=== PATIENT | male | born 1945 | race Caucasian/White ===

== ENCOUNTER → 2018-10-22 09:51 | Outpatient (CLI) | payer MEDICARE, SELFPAY ==
--- NOTE | 2018-10-22 10:04 | PCM.CR.HP2 ---
CR - History & Physical - General Arrival date:: 10/22/18 Arrival time:: 10:04 Date of Referral:: 10/12/18 Date of CR Evaluation:: 10/22/18 Referring Physician: Dr. Carlin Jay @ [facility] Primary Diagnosis: CABG - History of Present Cardiac Event Onset Date: Enter Onset Date of cardiac illnesses in Comment field below Coronary Artery Bypass Graft:: Yes - 08/25/2018 Type of Symptoms:: heart cath diagnostic, found blockages that couldn't be fixed with stents. - Medications Home Medications: Ambulatory Orders Medication Instructions Recorded Cephalexin [Keflex] 500 mg PO Q6 #40 capsule 07/18/14 Smz/Tmp Ds [Bactrim Ds] 1 tablet PO BID #20 tablet 07/18/14 Amiodarone HCl [Pacerone] 100 mg PO 10/22/18 Apixaban [Eliquis] 5 mg PO 10/22/18 Apixaban [Eliquis] 5 mg PO BID 10/22/18 Clopidogrel Bisulfate [Clopidogrel] 75 mg PO 10/22/18 Furosemide [Lasix] 20 mg PO DAILY 10/22/18 Metoprolol Tartrate [Lopressor 12.5 mg PO BID 10/22/18 (Beta Earl)] Polyethylene Glycol 3350 [Miralax] 17 gm PO DAILY 10/22/18 Potassium Chloride [K-Dur] 20 meq PO BID 10/22/18 Sennosides [Senna] 8.6 mg PO 10/22/18 - Allergies Allergies/Adverse Reactions: Allergies acetaminophen [From Tylenol-Codeine] Adverse Reaction (Verified 07/18/14 07:27) Swelling codeine phosphate [From Tylenol-Codeine] Adverse Reaction (Verified 07/18/14 07:27) Swelling - Sleep Disorder Evaluation Hx of Sleep Apnea: No Do you snore loudly (louder than talking or can be heard through closed doors)?: Yes Do you often feel tired/ fatigued/ sleepy during daytime?: Yes Has anyone observed you stop breathing during sleep?: No History of Hypertension (for STOP score): Yes STOP Results: Positive Advanced Directives - Advanced Directives Power of Fixed Wing Aircraft Crew Chief: No Living Will: No Advance Directives Information Provided: Yes Advance Directives on File: No DNR Order?:: No - MOLST See MOLST form: No Past Medical History - Past Medical Illness Medical History: Past Medical History (Last Updated 10/22/18 @ 10:18 by Bobby Jones, WAIVER ANALYST, IT SYSTEMS ANALYST, BS) Acute peptic ulcer K27.3 Acute sciatica M54.30 Amaurosis fugax G45.3 Atrial paroxysmal tachycardia I47.1 CAD (coronary artery disease) I25.10 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 Claudication I73.9 Hyperlipidemia E78.5 Macroscopic hematuria R31.0 Malaise and fatigue R53.81, R53.83 PVD (peripheral vascular disease) with claudication I73.9 Thrombocytopenic disorder D69.6 Hypertension I10 - Past Surgical History Surgical History: appendectomy, herniorrhaphy Social History - Smoking History Smoking Status: Former smoker Years Smokin Packs Smoked per Day: 0.5 Hx Smoking Cessation Date: 2009 Hx Tobacco Use: Yes Hx Smoking Exposure: Yes - Alcohol Use Alcohol Usage: Yes - not hardly nothing; a few beers when camping - Substance Abuse Hx Substance Use: No - Occupation Occupation (List type of work in comments):: Retired - officially retired but work part-time at [employer] Hours worked per day:: 8 - 32 hours week - Hobbies, Recreation, Social Activities Hobbies: Other - camping, dancing, bowling Recreational Activities: I am able to engage in a few activities Social Environment - Status Marital Status: - Current Living Arrangements Living Environment:: Spouse - Children How many children do you have?: 8 Do any of your children live nearby?: Yes - 4 of them live in the area. - Safety Do you feel safe in your surroundings?: Yes - Assistance Do you need any assistance at home?: none Review of Systems - Review of Systems Hints: Right click = Denies (Slash). Left click = Reports ([place]) Review of Present Symptoms: Reports: Shortness of Breath with Exertion, Operative Discomfort - still experiencing some surgical discomfort at the site of incision., Dizziness/Lightheadedness, Fatigue, Heart Arrhythmia/Irregularities - atrial tachycardia(paroxysmal), Appetite - Normal, Appetite - Special Diet - low fat, low salt, Sleep - Normal. Denies: Shortness of Breath at Rest, Angina, Sexual Changes - Pain Is Patient Pain Free?: Yes Risk Factor Assessment - Chief Complaint Chief Complaint: Patient presents to cardiac rehab by Dr. Re Jay following recent CABG done at [facility] on 08/25/2018. Patient has been doing relatively well following his surgery. - Vital Signs Temperature: 98.7 F Respiratory Rate: 14 Pulse Ox: 97 Blood Pressure: 118/68 Nailbeds:: pink - Pulse Pulse Rate: 49 - h/o a-fib Pulse Rhythm: Irregular - Hypertension Blood Pressure Sitting - Left Arm: 118/68 - Stress Stress: Recent - being unable to wrok since surgery - Obesity Height: 6 ft Weight:: 212 lb Weight in Pounds: 212.0 lbs Weight Source: Estimated by Patient Body Mass Index (BMI): 28.7 Nutritional Referral for Obesity: No - Physical Inactivity Physical Inactivity: None - Risk Stratification Risk Guidelines: Lowest Risk: Risk Factor for Smoking, Risk Factor for Dyslipidemia, Risk Factor for Diabetes, Risk Factor for Hypertension, Risk Factor for Sedentary Lifestyle, Risk Factor for Depression, Moderate Risk: Risk Factor for Obesity - For Smoking Smoking Risk Guidelines: Smoking Low Risk: None or quit greater than 6 months ago. Smoking Moderate Risk: Smoker or quit 6 months or less ago. Smoking High Risk: Smoker - For Dyslipidemia Dyslipidemia Risk Guidelines: Low Risk: Moderate Risk: High Risk: 15-25% fat 25.1-29% fat >/= 30% fat. <7% sat fat 7-9% sat fat >9% sat fat. <150 mg chol 150-299 mg chol >/= 300 mg chol. LDL <100 LDL 100-129 LDL >/= 130. Chol/HDL ratio <5.0 Chol/HDL ratio 5.0-6.0 Chol/HDL ratio >6.0. Triglycerides <100 Triglycerides 100-149 Triglycerides >/= 150 - For Diabetes Mellitus Diabetes Risk Guidelines: Diabetes Low Risk: HgA1c <6.5% and/or FBG <120. Diabetes Moderate Risk: HgA1c 6.6-7.9% and/or FBG 120-180. Diabetes High Risk: HgA1c >/= 8% and/or FBG >180 - For Obesity/Overweight Obesity/Overweight Risk Guidelines: Obesity Low Risk: BMI <25.0. Obesity Moderate Risk: BMI 25-29.9. Obesity High Risk: BMI >/= 30.0 - For Hypertension Hypertension Risk Guidelines: Hypertension Low Risk: Systolic <120 and Diastolic <80. Hypertension Moderate Risk: Systolic 120-139 and Diastolic 80-89. Hypertension High Risk: Systolic >/= 140 and Diastolic >/= 90 - For Sedentary Lifestyle Sedentary Lifestyle Risk Guidelines: Sedentary Lifestyle Low Risk: >/= 1,500 kcal/week. Sedentary Lifestyle Moderate Risk: 700-1,499 kcal/week. Sedentary Lifestyle High Risk: < 700 kcal/week - For Depression Depression Risk Guidelines: Depression Low Risk: Not clinically depressed. Depression Moderate Risk: Mildly depressed. Depression High Risk: Clinically depressed Motivation - Motivation to Participate On a scale of 1 to 10, how prepared are you to commit to attending program?: 10 What do you see as barriers to successfully being able to complete the program?: not much on a treadmill What do you see as the benefits of succesfully completing the program? In other words, what do you hope to get out of participating in the program?: hope it makes me feel better Are there issues you are dealing with that will interfere with completing the program?: none Do you have a spouse or signficant other, family or friends who will help support you to complete the program?: yes.
--- NOTE | 2018-10-22 10:10 | CR.HP_ITS ---
CR - History & Physical - General Arrival date:: 10/22/18 Arrival time:: 10:04 Date of Referral:: 10/12/18 Date of CR Evaluation:: 10/22/18 Referring Physician: Dr. Carlin Jay @ [facility] Primary Diagnosis: CABG - History of Present Cardiac Event Onset Date: Enter Onset Date of cardiac illnesses in Comment field below Coronary Artery Bypass Graft:: Yes - 08/25/2018 Type of Symptoms:: heart cath diagnostic, found blockages that couldn't be fixed with stents. - Medications Home Medications: Ambulatory Orders Medication Instructions Recorded Cephalexin [Keflex] 500 mg PO Q6 #40 capsule 07/18/14 Smz/Tmp Ds [Bactrim Ds] 1 tablet PO BID #20 tablet 07/18/14 Amiodarone HCl [Pacerone] 100 mg PO 10/22/18 Apixaban [Eliquis] 5 mg PO 10/22/18 Apixaban [Eliquis] 5 mg PO BID 10/22/18 Clopidogrel Bisulfate [Clopidogrel] 75 mg PO 10/22/18 Furosemide [Lasix] 20 mg PO DAILY 10/22/18 Metoprolol Tartrate [Lopressor 12.5 mg PO BID 10/22/18 (Beta Earl)] Polyethylene Glycol 3350 [Miralax] 17 gm PO DAILY 10/22/18 Potassium Chloride [K-Dur] 20 meq PO BID 10/22/18 Sennosides [Senna] 8.6 mg PO 10/22/18 - Allergies Allergies/Adverse Reactions: Allergies acetaminophen [From Tylenol-Codeine] Adverse Reaction (Verified 07/18/14 07:27) Swelling codeine phosphate [From Tylenol-Codeine] Adverse Reaction (Verified 07/18/14 07:27) Swelling - Sleep Disorder Evaluation Hx of Sleep Apnea: No Do you snore loudly (louder than talking or can be heard through closed doors)?: Yes Do you often feel tired/ fatigued/ sleepy during daytime?: Yes Has anyone observed you stop breathing during sleep?: No History of Hypertension (for STOP score): Yes STOP Results: Positive Advanced Directives - Advanced Directives Power of Circuit Court Clerk: No Living Will: No Advance Directives Information Provided: Yes Advance Directives on File: No DNR Order?:: No - MOLST See MOLST form: No Past Medical History - Past Medical Illness Medical History: Past Medical History (Last Updated 10/22/18 @ 10:18 by Bobby Jones, DYNAMICS AX CONSULTANT, RODEO PERFORMER, BS) Acute peptic ulcer K27.3 Acute sciatica M54.30 Amaurosis fugax G45.3 Atrial paroxysmal tachycardia I47.1 CAD (coronary artery disease) I25.10 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 Claudication I73.9 Hyperlipidemia E78.5 Macroscopic hematuria R31.0 Malaise and fatigue R53.81, R53.83 PVD (peripheral vascular disease) with claudication I73.9 Thrombocytopenic disorder D69.6 Hypertension I10 - Past Surgical History Surgical History: appendectomy, herniorrhaphy Social History - Smoking History Smoking Status: Former smoker Years Smokin Packs Smoked per Day: 0.5 Hx Smoking Cessation Date: 2009 Hx Tobacco Use: Yes Hx Smoking Exposure: Yes - Alcohol Use Alcohol Usage: Yes - not hardly nothing; a few beers when camping - Substance Abuse Hx Substance Use: No - Occupation Occupation (List type of work in comments):: Retired - officially retired but work part-time at [employer] Hours worked per day:: 8 - 32 hours week - Hobbies, Recreation, Social Activities Hobbies: Other - camping, dancing, bowling Recreational Activities: I am able to engage in a few activities Social Environment - Status Marital Status: - Current Living Arrangements Living Environment:: Spouse - Children How many children do you have?: 8 Do any of your children live nearby?: Yes - 4 of them live in the area. - Safety Do you feel safe in your surroundings?: Yes - Assistance Do you need any assistance at home?: none Review of Systems - Review of Systems Hints: Right click = Denies (Slash). Left click = Reports ([place]) Review of Present Symptoms: Reports: Shortness of Breath with Exertion, Operative Discomfort - still experiencing some surgical discomfort at the site of incision., Dizziness/Lightheadedness, Fatigue, Heart Arrhythmia/Irregularities - atrial tachycardia(paroxysmal), Appetite - Normal, Appetite - Special Diet - low fat, low salt, Sleep - Normal. Denies: Shortness of Breath at Rest, Angina, Sexual Changes - Pain Is Patient Pain Free?: Yes Risk Factor Assessment - Chief Complaint Chief Complaint: Patient presents to cardiac rehab by Dr. Re Jay following recent CABG done at [facility] on 08/25/2018. Patient has been doing relatively well following his surgery. - Vital Signs Temperature: 98.7 F Respiratory Rate: 14 Pulse Ox: 97 Blood Pressure: 118/68 Nailbeds:: pink - Pulse Pulse Rate: 49 - h/o a-fib Pulse Rhythm: Irregular - Hypertension Blood Pressure Sitting - Left Arm: 118/68 - Stress Stress: Recent - being unable to wrok since surgery - Obesity Height: 6 ft Weight:: 212 lb Weight in Pounds: 212.0 lbs Weight Source: Estimated by Patient Body Mass Index (BMI): 28.7 Nutritional Referral for Obesity: No - Physical Inactivity Physical Inactivity: None - Risk Stratification Risk Guidelines: Lowest Risk: Risk Factor for Smoking, Risk Factor for Dyslipidemia, Risk Factor for Diabetes, Risk Factor for Hypertension, Risk Factor for Sedentary Lifestyle, Risk Factor for Depression, Moderate Risk: Risk Factor for Obesity - For Smoking Smoking Risk Guidelines: Smoking Low Risk: None or quit greater than 6 months ago. Smoking Moderate Risk: Smoker or quit 6 months or less ago. Smoking High Risk: Smoker - For Dyslipidemia Dyslipidemia Risk Guidelines: Low Risk: Moderate Risk: High Risk: 15-25% fat 25.1-29% fat >/= 30% fat. <7% sat fat 7-9% sat fat >9% sat fat. <150 mg chol 150-299 mg chol >/= 300 mg chol. LDL <100 LDL 100-129 LDL >/= 130. Chol/HDL ratio <5.0 Chol/HDL ratio 5.0-6.0 Chol/HDL ratio >6.0. Triglycerides <100 Triglycerides 100-149 Triglycerides >/= 150 - For Diabetes Mellitus Diabetes Risk Guidelines: Diabetes Low Risk: HgA1c <6.5% and/or FBG <120. Diabetes Moderate Risk: HgA1c 6.6-7.9% and/or FBG 120-180. Diabetes High Risk: HgA1c >/= 8% and/or FBG >180 - For Obesity/Overweight Obesity/Overweight Risk Guidelines: Obesity Low Risk: BMI <25.0. Obesity Moderate Risk: BMI 25-29.9. Obesity High Risk: BMI >/= 30.0 - For Hypertension Hypertension Risk Guidelines: Hypertension Low Risk: Systolic <120 and Diastolic <80. Hypertension Moderate Risk: Systolic 120-139 and Diastolic 80-89. Hypertension High Risk: Systolic >/= 140 and Diastolic >/= 90 - For Sedentary Lifestyle Sedentary Lifestyle Risk Guidelines: Sedentary Lifestyle Low Risk: >/= 1,500 kcal/week. Sedentary Lifestyle Moderate Risk: 700-1,499 kcal/week. Sedentary Lifestyle High Risk: < 700 kcal/week - For Depression Depression Risk Guidelines: Depression Low Risk: Not clinically depressed. Depression Moderate Risk: Mildly depressed. Depression High Risk: Clinically depressed Motivation - Motivation to Participate On a scale of 1 to 10, how prepared are you to commit to attending program?: 10 What do you see as barriers to successfully being able to complete the program?: not much on a treadmill What do you see as the benefits of succesfully completing the program? In other words, what do you hope to get out of participating in the program?: hope it makes me feel better Are there issues you are dealing with that will interfere with completing the program?: none Do you have a spouse or signficant other, family or friends who will help support you to complete the program?: yes.
[2018-10-22 10:28] VITALS: BP 118/68; PULSE 49; RESP 14; TEMP 37.1; O2SAT 97; BMI 28.7
--- NOTE | 2018-10-22 12:33 | CR.ITP_ITS ---
General Information - General Information Admitting Diagnosis: CABG - Education/Goals Barriers to Learning: Vision Impairment Individual Counseling: Initial Assessment: Nicotine/Smoking, High Blood Pressure, Overweight/Obesity Cardiac Rehabilitation Goals: 1. Maintain the individual as the primary focus of care. 2. To improve the patient's quality of life. 3. Identification of cardiac risk factors and provide cardiac risk factor management. 4. Enhance the psychosocial status of the patient. 5. Reconditioning enough to allow the patient to resume customary activities. 6. Control symptoms of cardiac disease Scale for measuring improvement of personal goals: Enter appropriate number in Comments. 2 = Unchanged. 3 = Slightly Better. 4 = Moderate Improvement. 5 = Met my Goal Personal Goals: Initial Assessment: Improve energy level, Participate in home exercise program, Get back to work, or to resume activities faster, Improve knowledge of cardiac disease, Improve muscle strength and endurance, Improve diet and eating habits (eat healthier), Control risk factors (learn risk factor modification) Exercise - Initial Assessment - Visit Date of Eval: 10/22/18 Session #:: 0 - Start 11/04/2018 - Stages of Change Stages of Change:: Action - Exercise Prescription Mode:: Treadmill, Airdyne, NuStep, Arm Ergometer Angina with exercise?: No - Hypertension Do any of the following apply?: Yes - Intervention Home Exercise/Activity Goal:: Sitting Time <3 hrs/day - Education Goals:: Warm-up, RPE SADAF Scale, S/S, Safe Exercise, Self-Monitoring - Exercise Program Goals Exercise Program Goals: Aerobic Activity >30 min Nutrition - Initial Assessment - Program Goals Nutrition Program Goals: LDL <70. Total Cholesterol <200. HDL >45. Triglycerides <150. HgbA1C <7%. BMI <25 - Visit Date of Assessment:: 10/22/18 - Stages of Change Stages of Change:: Action - Diabetes Diabetes:: No - Weight Management Height: 6 ft Weight:: 212 lb Body Fat %:: 28.8 - Intervention Referral to dietitian:: No Referral to Diabetic Clinic:: No Will attend diet classes:: Yes - Education Gave educational materials for:: Healthy eating Tobacco - Initial Assessment - Program Goals Tobacco Program Goals: Complete smoking cessation. Attend education classes. Improve Knowledge Test score - Stage of Change Stages of Change:: Action - Learning Barriers Learning Barriers: Ready to Learn - Family Support Do you have family support?: Yes - Tobacco Use Tobacco Use: Cigarettes How long ago did you quit using tobacco products?: Greater than or equal to 6 months ago Years Smokin Do you use smokeless tobacco?: No - Intervention Smoking Cessation Referral:: No Individual Education/Counseling:: No Education Schedule Given:: Yes - Education Gave educational material for:: Coronary artery disease, Risk factors, Se xuality, Medical compliance, Cardiac A&P, Angina signs & symptoms Psychosocial - Initial Assess - Target Goals Target Goals: Assess presence or absence of depression. Using a valid screening tool, maximizes coping skills. Positive support system - Stages of Change Stages of Change:: Action - Psychosocial Test Tool Used:: HANDS Depression Questionnaire - Intervention PS - Interventions: Yes Attend Stress Management Classes, No Referral to Mental Health, No Referral to [facility] Case Management, No Referral to Physician, No Uses Stress Management Skills - Education Gave educational materials for:: Coping techniques, Signs & symptoms of depression, Stress management, Relaxation techniques - Patient/Program Goal Preventative Medication(s):: Aspirin, Clopidogrel, Beta yeni, Statin/lipid - Assistive Devices Assistive Devices:: None Fall Risk Assessed:: Yes Patient Health Questionnaire Initial Assessment 1. Little interest or pleasure in doing things: More than half the days 2. Feeling down, depressed, or hopeless: Not at all 3. Trouble falling or staying asleep, or sleeping too much: Not at all 4. Feeling tired or having little energy: More than half the days 5. Poor appetite or overeating: Not at all 6. Feeling bad about yourself -- or that you are a failure or have let yourself or your family down: More than half the days 7. Trouble concentrating on things, such as reading the newspaper or watching television: Not at all 8. Moving or speaking so slowly that other people could have noticed. Or the opposite - being so fidgety or restless that you have been moving around a lot more than usual: Not at all 9. Thoughts that you would be better off , or of hurting yourself in some way: Not at all How difficult have these problems made it for you to do your work, take care of things at home, or get along with other people?: Not difficult at all Total Score: 6 CHRISTINE-Q SV Test - Statements CAD is a disease of the arteries in the heart: False Examples of risk factors for heart disease: True Angina is chest pain or discomfort: True The benefits of resistance training include: True Eating more meat and dairy products: False Anti-platelet medications such as aspirin are important: True The only effective way to manage stress: True An exercise warm-up slowly increases heart rate: True Prepared, processed foods usually have high sodium: True Depression is common after a heart attack: True The statin medications lower cholesterol: True To control blood pressure, lower the amount of sodium: True If someone gets chest discomfort during walking: False Transfats are partially hydrogenated vegetable oils: True Sleep apnea that is not treated increases the risk: True To control cholesterol, one should become a vegetarian: False Someone knows if he/she is exercising at the right level: False Diabetes cannot be prevented with exercise & health eating: True Stress is a large risk for heart attack: True A diet that can help lower blood pressure is rich in: True - Total Score Total Correct Responses: 16 Self-Efficacy Initial Assessment We would like to know how confident you are in doing certain activities. Please select your confidence level for:: Select your confidence level for the following using the scale 1-10 where 1 is not at all confident and 10 is totally confident. Your score is the average of all 6 responses. Fatigue: How confident are you that you can keep the fatigue caused by your disease from interfering with the things you want to do? Select Number: 5 Physical Discomfort or Pain: How confident are you that you can keep the physical discomfort or pain of your disease from interfering with the things you want to do? Select Number: 7 Emotional Distress: How confident are you that you can keep the emotional distress caused by your disease from interfering with the things you want to do? Select Number: 5 Other Symptoms or Health Problems: How confident are you that you can keep other symptoms or health problems from interfering with the things you want to do? Select Number: 5 Different Tasks and Activities: How confident are you that you can do the different tasks and activities needed to manage your health condition so as to reduce your need to see a doctor? Select Number: 6 Medication: How confident are you that you can do things other than just taking medication to reduce how much your illness affects your everyday life? Select Number: 5 Total Score:: 5 Nutrition Survey - Nutrition Survey Instructions Scoring Instructions: Scoring is as follows: Yes = 1 points. No = 0 point. Patient score that is >/=12 is considered to be at potential nutritional risk and could benefit from a referral to a registered dietitian. - Nutrition Survey Initial Have you lost >10 lbs over the past 2 months without trying?: Yes Are you following a special diet at home for diabetes, low fat, or low salt?: Yes Are you interested in meeting with a dietitian for help understanding your diet?: Yes Do you eat less than 3 meals a day?: No Do you eat fatty meats ([place], sausage, ribs, etc), fried foods, desserts, large amounts of salad dressings, margarine, butter, or cheese most days?: Yes Do you have food allergies? [Enter types in comment field]: No Do you eat in restaurants more than 3 times a week?: No Do you season food with salt, seasoning salt, or garlic salt?: Yes Do you used canned, boxed, frozen meals, or soups, seasoning packets?: Yes Total Score:: 6
== END ==
DX: Z95.1 Presence of aortocoronary bypass graft (principal)

== ENCOUNTER 2018-11-30 10:15 | Outpatient (RCR) | payer MEDICARE, SELFPAY ==
[2018-10-22 10:28] VITALS: BMI 28.7
--- NOTE | 2018-11-20 13:00 | PCM.CR.ITP ---
General Information - General Information Admitting Diagnosis: CABG - Education/Goals Cardiac Rehabilitation Goals: 1. Maintain the individual as the primary focus of care. 2. To improve the patient's quality of life. 3. Identification of cardiac risk factors and provide cardiac risk factor management. 4. Enhance the psychosocial status of the patient. 5. Reconditioning enough to allow the patient to resume customary activities. 6. Control symptoms of cardiac disease Scale for measuring improvement of personal goals: Enter appropriate number in Comments. 2 = Unchanged. 3 = Slightly Better. 4 = Moderate Improvement. 5 = Met my Goal Exercise - 30-day Assessment - Visit Date of Eval: 11/20/18 Session #:: 7 - Stages of Change Stages of Change:: Action - Exercise Prescription Mode:: Treadmill, Airdyne, NuStep Frequency (x/week): 3 Duration:: 30-45 Target Heart Rate:: 114-122 Max HR 94 - Hypertension Resting Blood Pressure:: 110/68 Peak Exercise Blood Pressure:: 118/82 - Intervention Home Exercise/Activity Goal:: Sitting Time <3 hrs/day - Education Goals:: Warm-up, RPE SADAF Scale, S/S, Safe Exercise, Self-Monitoring - Exercise Program Goals Exercise Program Goals: Aerobic Activity >30 min, B/P <130/80 Nutrition - 30-Day Assessment - Program Goals Nutrition Program Goals: LDL <70. Total Cholesterol <200. HDL >45. Triglycerides <150. HgbA1C <7%. BMI <25 - Visit Date of Eval: 11/20/18 - Stages of Change Stages of Change:: Action - Intervention Referral to dietitian:: No Referral to Diabetic Clinic:: No Will attend diet classes:: Yes - Education Attended class for:: Signs & symptoms of hypoglycemia, Signs & symptoms of hyperglycemia, Relate diabetes to coronary artery disease, Healthy eating Tobacco - 30-Day Assessment - Program Goals Tobacco Program Goals: Complete smoking cessation. Attend education classes. Improve Knowledge Test score - Stage of Change Stages of Change:: Action - Learning Barriers Learning Barriers: Participates in education - Family Support Do you have family support?: Yes - Tobacco Use Tobacco Use: Non-smoker - Intervention Smoking Cessation Referral:: No Individual Education/Counseling:: No Education Schedule Given:: Yes - Education Attended class for:: Tobacco triggers, Coronary artery disease, Risk factors, Sexuality, Medical compliance, Cardiac A&P, Angina signs & symptoms Psychosocial - 30-Day Assess - Target Goals Target Goals: Assess presence or absence of depression. Using a valid screening tool, maximizes coping skills. Positive support system - Stages of Change Stages of Change:: Action - Psychosocial Test Tool Used:: HANDS Depression Questionnaire - Intervention PS - Interventions: Yes Attend Stress Management Classes, Yes Uses Stress Management Skills, No Referral to Mental Health, No Referral to [facility] Case Management, No Referral to Physician - Education Attended classes for:: Coping techniques, Signs & symptoms of depression, Stress management, Relaxation techniques - Assistive Devices Assistive Devices:: None Fall Risk Assessed:: Yes Patient Health Questionnaire 30-Day Re-eval Assessment 1. Little interest or pleasure in doing things: More than half the days 2. Feeling down, depressed, or hopeless: Not at all 3. Trouble falling or staying asleep, or sleeping too much: Not at all 4. Feeling tired or having little energy: More than half the days 5. Poor appetite or overeating: Not at all 6. Feeling bad about yourself -- or that you are a failure or have let yourself or your family down: More than half the days 7. Trouble concentrating on things, such as reading the newspaper or watching television: Not at all 8. Moving or speaking so slowly that other people could have noticed. Or the opposite - being so fidgety or restless that you have been moving around a lot more than usual: Not at all 9. Thoughts that you would be better off , or of hurting yourself in some way: Not at all Total Score: 6 Self-Efficacy 30-Day Re-eval Assessment We would like to know how confident you are in doing certain activities. Please select your confidence level for:: Select your confidence level for the following using the scale 1-10 where 1 is not at all confident and 10 is totally confident. Your score is the average of all 6 responses. Fatigue: How confident are you that you can keep the fatigue caused by your disease from interfering with the things you want to do? Physical Discomfort or Pain: How confident are you that you can keep the physical discomfort or pain of your disease from interfering with the things you want to do? Select Number: 7 Emotional Distress: How confident are you that you can keep the emotional distress caused by your disease from interfering with the things you want to do? Select Number: 5 Other Symptoms or Health Problems: How confident are you that you can keep other symptoms or health problems from interfering with the things you want to do? Select Number: 5 Different Tasks and Activities: How confident are you that you can do the different tasks and activities needed to manage your health condition so as to reduce your need to see a doctor? Select Number: 6 Medication: How confident are you that you can do things other than just taking medication to reduce how much your illness affects your everyday life? Select Number: 5
[2018-11-20 13:05] VITALS: BP 110/68; BP 118/82
== END 2018-12-03 23:59 ==
LOC: CR 10:15
DX: Z95.1 Presence of aortocoronary bypass graft (principal)
CPT/HCPCS: 93798

== ENCOUNTER 2018-12-30 10:15 | Outpatient (RCR) | payer MEDICARE, SELFPAY ==
[2018-10-22 10:28] VITALS: BMI 28.7
[2018-12-04 00:46] VITALS: BP 110/68; BP 118/82
--- NOTE | 2018-12-21 11:52 | PCM.CR.ITP ---
General Information - General Information Admitting Diagnosis: CABG - Education/Goals Cardiac Rehabilitation Goals: 1. Maintain the individual as the primary focus of care. 2. To improve the patient's quality of life. 3. Identification of cardiac risk factors and provide cardiac risk factor management. 4. Enhance the psychosocial status of the patient. 5. Reconditioning enough to allow the patient to resume customary activities. 6. Control symptoms of cardiac disease Scale for measuring improvement of personal goals: Enter appropriate number in Comments. 2 = Unchanged. 3 = Slightly Better. 4 = Moderate Improvement. 5 = Met my Goal Exercise - 60-Day Assessment - Visit Date of Eval: 12/21/18 Session #:: 18 - Stages of Change Stages of Change:: Action - Exercise Prescription Mode:: Treadmill, NuStep, Arm Ergometer Frequency (x/week): 3 Duration:: 30-45 METs: 5 Target Heart Rate:: 114-122 Max HR 95 - Hypertension Resting Blood Pressure:: 116/68 Peak Exercise Blood Pressure:: 122/60 - Intervention Home Exercise/Activity Goal:: Sitting Time <3 hrs/day - Education Goals:: Warm-up, RPE SADAF Scale, S/S, Safe Exercise, Self-Monitoring - Exercise Program Goals Exercise Program Goals: Aerobic Activity >30 min, B/P <130/80 Nutrition - 60-Day Assessment - Program Goals Nutrition Program Goals: LDL <70. Total Cholesterol <200. HDL >45. Triglycerides <150. HgbA1C <7%. BMI <25 - Visit Date of Eval: 12/21/18 - Stages of Change Stages of Change:: Action - Lipids Has the patient seen the dietitian?: No - Weight Management Weight:: 98.43 kg - Intervention Referral to dietitian:: No Referral to Diabetic Clinic:: No Will attend diet classes:: Yes - Education Attended class for:: Signs & symptoms of hypoglycemia, Signs & symptoms of hyperglycemia, Relate diabetes to coronary artery disease, Healthy eating Tobacco - Initial Assessment - Program Goals Tobacco Program Goals: Complete smoking cessation. Attend education classes. Improve Knowledge Test score - Learning Barriers Learning Barriers: Ready to Learn Tobacco - 60-Day Assessment - Program Goals Tobacco Program Goals: Complete smoking cessation. Attend education classes. Improve Knowledge Test score - Stage of Change Stages of Change:: Action - Learning Barriers Learning Barriers: Participates in education - Family Support Do you have family support?: Yes - Tobacco Use Tobacco Use: Non-smoker Do you use smokeless tobacco?: No - Intervention Smoking Cessation Referral:: No Individual Education/Counseling:: No Education Schedule Given:: Yes - Education Attended class for:: Tobacco triggers, Coronary artery disease, Risk factors, Sexuality, Medical compliance, Cardiac A&P, Angina signs & symptoms Psychosocial - Initial Assess - Target Goals Target Goals: Assess presence or absence of depression. Using a valid screening tool, maximizes coping skills. Positive support system - Psychosocial Test Tool Used:: HANDS Depression Questionnaire - Assistive Devices Fall Risk Assessed:: Yes Psychosocial - 60-Day Assess - Target Goals Target Goals: Assess presence or absence of depression. Using a valid screening tool, maximizes coping skills. Positive support system - Stages of Change Stages of Change:: Action - Psychosocial Test Tool Used:: HANDS Depression Questionnaire - Intervention PS - Interventions: Yes Attend Stress Management Classes, Yes Uses Stress Management Skills, No Referral to Mental Health, No Referral to [facility] Case Management, No Referral to Physician - Education Attended classes for:: Signs & symptoms of depression, Stress management, Relaxation techniques - Assistive Devices Fall Risk Assessed:: Yes Patient Health Questionnaire 60-Day Re-eval Assessment 1. Little interest or pleasure in doing things: More than half the days 2. Feeling down, depressed, or hopeless: Not at all 3. Trouble falling or staying asleep, or sleeping too much: Not at all 4. Feeling tired or having little energy: More than half the days 6. Feeling bad about yourself -- or that you are a failure or have let yourself or your family down: Not at all 7. Trouble concentrating on things, such as reading the newspaper or watching television: Not at all 8. Moving or speaking so slowly that other people could have noticed. Or the opposite - being so fidgety or restless that you have been moving around a lot more than usual: Not at all 9. Thoughts that you would be better off , or of hurting yourself in some way: Not at all How difficult have these problems made it for you to do your work, take care of things at home, or get along with other people?: Not difficult at all Total Score: 4 Self-Efficacy 60-Day Re-eval Assessment We would like to know how confident you are in doing certain activities. Please select your confidence level for:: Select your confidence level for the following using the scale 1-10 where 1 is not at all confident and 10 is totally confident. Your score is the average of all 6 responses. Fatigue: How confident are you that you can keep the fatigue caused by your disease from interfering with the things you want to do? Select Number: 7 Physical Discomfort or Pain: How confident are you that you can keep the physical discomfort or pain of your disease from interfering with the things you want to do? Emotional Distress: How confident are you that you can keep the emotional distress caused by your disease from interfering with the things you want to do? Select Number: 5 Other Symptoms or Health Problems: How confident are you that you can keep other symptoms or health problems from interfering with the things you want to do? Select Number: 6 Different Tasks and Activities: How confident are you that you can do the different tasks and activities needed to manage your health condition so as to reduce your need to see a doctor? Medication: How confident are you that you can do things other than just taking medication to reduce how much your illness affects your everyday life? Select Number: 5
[2018-12-21 11:58] VITALS: BP 116/68; BP 122/60
== END 2018-12-31 23:59 ==
LOC: CR 10:15
DX: Z95.1 Presence of aortocoronary bypass graft (principal)
CPT/HCPCS: 93798

== ENCOUNTER 2019-01-27 10:15 | Outpatient (RCR) | payer MEDICARE, SELFPAY ==
[2018-10-22 10:28] VITALS: BMI 28.7
[2019-01-01 00:41] VITALS: BP 116/68; BP 122/60
--- NOTE | 2019-01-18 13:03 | PCM.CR.ITP ---
General Information - General Information Admitting Diagnosis: CABG - Education/Goals Cardiac Rehabilitation Goals: 1. Maintain the individual as the primary focus of care. 2. To improve the patient's quality of life. 3. Identification of cardiac risk factors and provide cardiac risk factor management. 4. Enhance the psychosocial status of the patient. 5. Reconditioning enough to allow the patient to resume customary activities. 6. Control symptoms of cardiac disease Scale for measuring improvement of personal goals: Enter appropriate number in Comments. 2 = Unchanged. 3 = Slightly Better. 4 = Moderate Improvement. 5 = Met my Goal Exercise - 90-Day Assessment - Visit Date of Eval: 01/18/19 Session #:: 30 - Stages of Change Stages of Change:: Action - Physician Prescribed Exercise Modalities: Treadmill, NuStep, SciFit Frequency (days/week): 3 Duration (Minutes):: 30-45 Intensity: 60-80% age predicted maximum heart rate reserve METs - Progression: 0.5-1.0 MET, RPE 11-14 WEEK: 5 Target Heart Rate:: 114-122 Max HR 87 - Hypertension Resting Blood Pressure:: 134/68 Peak Exercise Blood Pressure:: 142/70 - Intervention Home Exercise/Activity Goal:: Sitting Time <3 hrs/day - Education Goals:: Warm-up, RPE SADAF Scale, S/S, Safe Exercise, Self-Monitoring - Exercise Program Goals Exercise Program Goals: Aerobic Activity >30 min, B/P <130/80 Nutrition - 90-Day Assessment - Program Goals Nutrition Program Goals: LDL <70. Total Cholesterol <200. HDL >45. Triglycerides <150. HgbA1C <7%. BMI <25 - Visit Date of Eval: 01/18/19 - Stages of Change Stages of Change:: Action - Lipids Has the patient seen the dietitian?: No - Weight Management Weight:: 99.564 kg - Intervention Referral to dietitian:: No Referral to Diabetic Clinic:: No Will attend diet classes:: Yes - Education Attended class for:: Signs & symptoms of hypoglycemia, Signs & symptoms of hyperglycemia, Relate diabetes to coronary artery disease, Healthy eating Tobacco - Initial Assessment - Program Goals Tobacco Program Goals: Complete smoking cessation. Attend education classes. Improve Knowledge Test score - Learning Barriers Learning Barriers: Ready to Learn Tobacco - 90-Day Assessment - Program Goals Tobacco Program Goals: Complete smoking cessation. Attend education classes. Improve Knowledge Test score - Stage of Change Stages of Change:: Action - Learning Barriers Learning Barriers: Participates in education - Family Support Do you have family support?: Yes - Tobacco Use Tobacco Use: Non-smoker Do you use smokeless tobacco?: No - Intervention Smoking Cessation Referral:: No Individual Education/Counseling:: No Education Schedule Given:: Yes - Education Attended class for:: Tobacco triggers, Coronary artery disease, Risk factors, Sexuality, Medical compliance, Cardiac A&P, Angina signs & symptoms Psychosocial - Initial Assess - Target Goals Target Goals: Assess presence or absence of depression. Using a valid screening tool, maximizes coping skills. Positive support system - Psychosocial Test Tool Used:: HANDS Depression Questionnaire - Assistive Devices Fall Risk Assessed:: Yes Psychosocial - 90-Day Assess - Target Goals Target Goals: Assess presence or absence of depression. Using a valid screening tool, maximizes coping skills. Positive support system - Stages of Change Stages of Change:: Action - Psychosocial Test Tool Used:: HANDS Depression Questionnaire - Intervention PS - Interventions: Yes Attend Stress Management Classes, Yes Uses Stress Management Skills, No Referral to Mental Health, No Referral to [facility] Case Management, No Referral to Physician - Education Attended classes for:: Coping techniques, Signs & symptoms of depression, Stress management, Relaxation techniques - Assistive Devices Assistive Devices:: None Fall Risk Assessed:: Yes Patient Health Questionnaire 90-Day Re-eval Assessment 1. Little interest or pleasure in doing things: More than half the days 2. Feeling down, depressed, or hopeless: Not at all 3. Trouble falling or staying asleep, or sleeping too much: More than half the days 4. Feeling tired or having little energy: Not at all 5. Poor appetite or overeating: Not at all 6. Feeling bad about yourself -- or that you are a failure or have let yourself or your family down: Not at all 7. Trouble concentrating on things, such as reading the newspaper or watching television: Not at all 8. Moving or speaking so slowly that other people could have noticed. Or the opposite - being so fidgety or restless that you have been moving around a lot more than usual: Not at all 9. Thoughts that you would be better off , or of hurting yourself in some way: Not at all How difficult have these problems made it for you to do your work, take care of things at home, or get along with other people?: Not difficult at all Total Score: 4 Self-Efficacy 90-Day Re-eval Assessment We would like to know how confident you are in doing certain activities. Please select your confidence level for:: Select your confidence level for the following using the scale 1-10 where 1 is not at all confident and 10 is totally confident. Your score is the average of all 6 responses. Fatigue: How confident are you that you can keep the fatigue caused by your disease from interfering with the things you want to do? Select Number: 7 Physical Discomfort or Pain: How confident are you that you can keep the physical discomfort or pain of your disease from interfering with the things you want to do? Select Number: 5 Emotional Distress: How confident are you that you can keep the emotional distress caused by your disease from interfering with the things you want to do? Select Number: 6 Other Symptoms or Health Problems: How confident are you that you can keep other symptoms or health problems from interfering with the things you want to do? Select Number: 5 Different Tasks and Activities: How confident are you that you can do the different tasks and activities needed to manage your health condition so as to reduce your need to see a doctor? Select Number: 7 Medication: How confident are you that you can do things other than just taking medication to reduce how much your illness affects your everyday life? Select Number: 7 Total Score:: 6
[2019-01-18 13:08] VITALS: BP 134/68; BP 142/70
== END 2019-01-31 23:59 ==
LOC: CR 10:15
DX: Z95.1 Presence of aortocoronary bypass graft (principal)
CPT/HCPCS: 93798

== ENCOUNTER → 2020-01-25 11:56 | Outpatient (CLI) | payer MEDICARE, SELFPAY ==
[2020-01-25 11:39] VITALS: BMI 28.7
--- NOTE | 2020-01-25 12:02 | RAD_ITS ---
STUDY: X-RAY - RIGHT FOOT CLINICAL: Male, 74 years old. Pain lateral foot and arch of foot x 2 weeks, no trauma TECHNIQUE: 3 view(s) of the foot. COMPARISON: None. FINDINGS: There is an enthesophyte involving the posterior superior calcaneus at the site of insertion of the Achilles tendon. Normal visualized subtalar, talonavicular, calcaneocuboid, tarsal and tarsometatarsal articulations. Normal metatarsi. Normal metatarsophalangeal joint of the great toe. Normal tibial and fibular sesamoid bones. Normal interphalangeal joint of the great toe. Normal phalanges of the great toe. Normal second through fifth metatarsophalangeal joints. Normal interphalangeal joints and phalanges of the lesser toes. The soft tissue structures are unremarkable. RAD/Foot min 3 Views IMPRESSION: Spur is seen at the insertion of the Achilles tendon Electronically Signed: Uvaldo Madden, at 13:05 EDT , Service support ,
== END ==
PROVIDERS: Referring Provider Physician Assistant Surgical; Visit Provider Physician Assistant Surgical
DX: S96.911A Strain of unspecified muscle and tendon at ankle and foot level, right foot, initial encounter (principal)
CPT/HCPCS: 73630

== ENCOUNTER 2021-08-15 19:39 | Emergency (ER) | payer OTHER, MEDICARE, SELFPAY ==
[2021-08-15 19:40] VITALS: BP 164/72; PULSE 77; RESP 18; TEMP 38.3; O2SAT 99; BMI 29.8
--- NOTE | 2021-08-15 20:03 | EKG12_ITS ---
Test Reason : DYSRHYTHMIA Blood Pressure : / mmHG Vent. Rate : 091 BPM Atrial Rate : 091 BPM P-R Int : 144 ms QRS Dur : 082 ms QT Int : 346 ms P-R-T Axes : 080 054 063 degrees QTc Int : 425 ms Normal sinus rhythm Septal infarct , age undetermined Abnormal ECG Confirmed by ELISE NAVARRETE, KATELYN ([id number]), graphics editor GINA PATE ([id number]) on 08/21/2021 6:37:19 AM Referred By: MICHAELA Confirmed By:KATELYN OLIVARES MD
--- NOTE | 2021-08-15 20:07 | EX.ED.DYSGE1 ---
HPI History of Present Illness Chief Complaint: Cold Sx Informant: patient and spouse/S.O. Onset/Context/Timing Onset: Days (3 to 4 days) Context: Gradual Onset Current Severity: Moderate Maximum Severity: Moderate Narrative Narrative: Patient presents with fever and chills for the past 4 days. He complains of sore throat, cough, abdominal pain. He has had some nausea and dry heaves but no vomiting. No diarrhea. He denies urinary symptoms. He denies known exposure to Covid. He did receive the Covid vaccine. [facility] Medical History (Updated 08/15/21 @ 22:[address] Bonnei Griffin MD) Acute peptic ulcer Acute sciatica Amaurosis fugax Atrial paroxysmal tachycardia CAD (coronary artery disease) Chronic neck and back pain Chronic primary gouty arthritis Chronic primary gouty arthritis Claudication Hyperlipidemia Hypertension Knee pain Macroscopic hematuria Malaise and fatigue Prostate cancer PVD (peripheral vascular disease) with claudication Shortness of breath Thrombocytopenic disorder Home Medications amiodarone [Pacerone] 100 mg PO DAILY 10/22/18 [History Last Taken Unknown] apixaban [Eliquis] 5 mg PO BID 10/22/18 [History Last Taken Unknown] clopidogrel 75 mg PO DAILY 10/22/18 [History Last Taken Unknown] furosemide 20 mg PO DAILY 10/22/18 [History Last Taken Unknown] metoprolol tartrate 12.5 mg PO BID 10/22/18 [History Last Taken Unknown] potassium chloride 20 meq PO BID 10/22/18 [History Last Taken Unknown] gabapentin 300 mg capsule 300 mg PO DAILY #10 cap 09/26/20 [Rx Last Taken Unknown] coenzyme Q10 [CoQ-10] 200 mg PO DAILY 08/15/21 [History Last Taken Unknown] Allergy/AdvReac Type Severity Reaction Status Date / Time acetaminophen AdvReac Swelling Verified 01/25/20 11:38 [From Tylenol-Codeine] codeine phosphate AdvReac Swelling Verified 01/25/20 11:38 [From Tylenol-Codeine] Surgical History (Updated 08/15/21 @ 20:11 by Peggy Clay) History of coronary artery stent placement Hx of CABG Social History Smoking Status: Former smoker alcohol intake: never ROS ROS ED Constitutional Constitutional ED: Reports chills and fever(s) Eyes Eyes: Denies change in vision ENT ENT ED: Reports sore throat; Denies rhinorrhea Cardiovascular Cardiovascular: Denies chest pain Respiratory/Chest Respiratory/Chest: Reports cough, dyspnea and sputum Gastrointestinal Gastrointestinal: Reports abdominal pain and nausea; Denies diarrhea or vomiting Genitourinary Genitourinary ED: Denies dysuria or hematuria Musculoskeletal Musculoskeletal: Reports myalgias Integumentary Denies rash Neurologic Neurologic: Denies weakness Allergic/Immunologic Allergic/Immunologic ED: Denies urticaria EXAM Physical Exam Const Vital Signs: 08/15/21 19:40 08/15/21 20:31 08/15/21 21:26 Temperature 101 F H Temperature Source Temporal Pulse Rate 77 90 83 Respiratory Rate 18 18 24 H Blood Pressure 164/72 H Blood Pressure Mean 102 Pulse Ox 99 94 Oxygen Delivery Method Room Air Room Air Room Air 08/15/21 21:41 Temperature 101.6 F H Temperature Source Oral Pulse Rate 80 Respiratory Rate 16 Blood Pressure 134/66 H Blood Pressure Mean 88 Pulse Ox 96 Oxygen Delivery Method Room Air Positive well nourished and well developed General Appearance ED: well developed Eyes PERRL and EOMs intact bilaterally Neck supple Resp normal respiratory effort Auscultation: diminished lung sounds Cardio regular rate and regular rhythm GI Palpation: soft and tender epigastric; Negative for guarding or rebound tenderness present Extremity normal to inspection Neuro oriented x3 Sensorium / Orientation: alert Psych mental status grossly normal Skin no rashes or lesions noted MDM MDM MDM Narrative Medical decision making narrative: Patient given Tylenol for fever. Lab work, chest x-ray, EKG obtained. Lab Data Labs: Laboratory Results - last 24 hr 08/15/21 08/15/21 08/15/21 20:08 20:08 20:08 WBC 6.4 RBC 4.48 L Hgb 14.4 Hct 43.1 MCV 96.2 H MCH 32.1 H MCHC 33.4 RDW Std Deviation 44.4 H RDW Coeff of Phil 12.6 Plt Count 121 L MPV 11.4 Immature Gran % (Auto) 0.200 Neut % (Auto) 77.3 H Lymph % (Auto) 9.5 L [place] % (Auto) 10.2 H Eos % (Auto) 2.0 Baso % (Auto) 0.8 Absolute Neuts (auto) 4.9 Absolute Lymphs (auto) 0.61 L Nucleated RBC % 0 PT 14.3 INR 1.2 APTT 37.1 H Sodium 141 Potassium 3.8 Chloride 108 H Carbon Dioxide 27.0 Anion Gap 6 BUN 18 Creatinine 1.59 H Estim Creat Clear Calc 44.74 Est GFR (MDRD) Af Amer 55 L Est GFR (MDRD) Non-Af 45 L BUN/Creatinine Ratio 11.3 Glucose 98 Lactic Acid Calcium 8.5 Total Bilirubin 1.00 AST 24 ALT 30 Alkaline Phosphatase 44 L Total Protein 7.1 Albumin 3.4 Globulin 3.7 Albumin/Globulin Ratio 0.9 Lipase 78 Urine Color Urine Clarity Urine pH Ur Specific [place] Urine Protein Urine Glucose (UA) Urine Ketones Urine Occult Blood Urine Nitrite Urine Bilirubin Urine Urobilinogen Ur Leukocyte Esterase Urine RBC Urine WBC Ur Squamous Epith Cells Urine Bacteria Urine Mucus 08/15/21 08/15/21 20:08 20:22 WBC RBC Hgb Hct MCV MCH MCHC RDW Std Deviation RDW Coeff of Phil Plt Count MPV Immature Gran % (Auto) Neut % (Auto) Lymph % (Auto) [place] % (Auto) Eos % (Auto) Baso % (Auto) Absolute Neuts (auto) Absolute Lymphs (auto) Nucleated RBC % PT INR APTT Sodium Potassium Chloride Carbon Dioxide Anion Gap BUN Creatinine Estim Creat Clear Calc Est GFR (MDRD) Af Amer Est GFR (MDRD) Non-Af BUN/Creatinine Ratio Glucose Lactic Acid 1.2 Calcium Total Bilirubin AST ALT Alkaline Phosphatase Total Protein Albumin Globulin Albumin/Globulin Ratio Lipase Urine Color Yellow Urine Clarity Clear Urine pH 7.0 Ur Specific [place] 1.010 Urine Protein 100 H Urine Glucose (UA) Normal Urine Ketones Negative Urine Occult Blood 150 H Urine Nitrite Negative Urine Bilirubin Negative Urine Urobilinogen 8 H Ur Leukocyte Esterase Negative Urine RBC 0-5 SEEN Urine WBC 0 SEEN Ur Squamous Epith Cells 0 SEEN Urine Bacteria 0 SEEN Urine Mucus 0 SEEN Radiography Chest X-Ray - ED: 1 View, Read by ED Physician and Chronic Changes Diagnostic Testing: Clinical Impression(s) from Imaging Studies Chest X-Ray 08/15/21 20:30 IMPRESSION: No acute cardiopulmonary process. Electronically Signed: Naida Keen MD at 20:56 EDT Tel , Service support , EKG Initial EKG: Attestation: I personally reviewed and interpreted this EKG as follows: Interpretation: Sinus Rhythm (Sinus at [address].) Treatment and Re-Evaluation Comments:: On repeat evaluation patient states his Tylenol was just rechecked and is still greater than 100. He is given a dose of ibuprofen. Lab work is unremarkable. Urinalysis clean. Chest x-ray reveals no infiltrate. Rapid Covid swab is negative. Rapid strep is obtained and that returns negative also. Test results discussed with patient and at bedside. I believe he likely has another viral illness causing similar symptoms. He will continue supportive care at home. Discharge Plan Triage Chief Complaint: Cold Sx ED Provider: Bonnie Griffin Dx/Rx/DC Orders Clinical Impression: Viral syndrome Instructions: ED Viral Syndrome (Adult) Prescriptions: No Action gabapentin [Neurontin] 300 mg capsule 300 mg PO DAILY Qty: 10 RF: 0 clopidogrel 75 MG tablet 75 mg PO DAILY RF: 0 amiodarone [Pacerone] 100 MG tablet 100 mg PO DAILY RF: 0 metoprolol tartrate 25 MG tablet 12.5 mg PO BID RF: 0 potassium chloride 20 MEQ tablet 20 meq PO BID RF: 0 furosemide 20 MG tablet 20 mg PO DAILY RF: 0 Eliquis 5 MG tablet 5 mg PO BID RF: 0 coenzyme Q10 [CoQ-10] 100 mg Capsule 200 mg PO DAILY RF: 0 Stand Alone Forms: ED Work / School Excuse Primary Care Provider: Care Physician,No Primary Referrals: Care Physician,No Primary [Primary Care Provider] - Activity Restrictions/Additional Instructions: Follow-up with your doctor at the [place]. Disposition Disposition: Home, Self Care
[2021-08-15] MEDS: Acetaminophen 500 MG Tablet 1000 MG PO (20:19)
[2021-08-15 20:24] LABS: Absolute Lymphocyte Count 0.61 X10^3/uL (0.83-4.51); Absolute Neutrophil Count 4.9 X10^3/uL (2.0-7.7); Basophil# 0.05 X10^3/uL; Basophil% 0.8 % (0-1); Eosinophil# 0.13 X10^3/uL; Hematocrit 43.1 % (40-54); Hemoglobin 14.4 g/dL (13.0-16.5); Lymphocyte # 0.61 X10^3/ul (0.83-4.51); Lymphocyte % 9.5 % (19-41); Mean Corp Hgb Conc 33.4 g/dL (32-36); Mean Corpuscular Hgb 32.1 pg (27.0-32.0); Mean Corpuscular Volume 96.2 fL (80-94); Mean Platelet Vol. 11.4 fl (6.2-12.0); Monocyte# 0.65 X10^3/uL; Monocyte% 10.2 % (0-10); NRBC Flagged by Analyzer 0 % (0-5); Neutrophil # 4.94 X10^3/uL (2.7-7.7); Neutrophil % 77.3 % (47-70); Platelet Count 121 K/mm3 (150-450); RBC Distribution Width CV 12.6 % (11.6-14.6); RBC Distribution Width SD 44.4 fl (35.1-43.9); Red Blood Count 4.48 M/mm3 (4.6-6.2); White Blood Count 6.4 K/mm3 (4.4-11.0)
--- NOTE | 2021-08-15 20:30 | RAD_ITS ---
STUDY: X-RAY CHEST REASON FOR EXAM: Male, 75 years old. Cough TECHNIQUE: Single frontal view of the chest. COMPARISON: None. FINDINGS: The lungs are clear and expanded. There is no demonstrated pleural abnormality. Sternal cerclage wires and vascular clips are present from a prior sternotomy and coronary artery bypass graft procedure (CABG). There is no cardiomegaly. Normal mediastinum and shon. Normal visualized pulmonary arteries. Normal visualized aortic arch and descending thoracic aorta. Normal visualized thoracic spine. Normal visualized ribs, clavicles, and shoulders. There is no demonstrated abnormality of the visualized soft tissue structures of the upper abdomen. RAD/Chest 1 View (Portable) IMPRESSION: No acute cardiopulmonary process. Electronically Signed: Naida Keen MD at 20:56 EDT Tel , Service support ,
[2021-08-15 20:31] VITALS: PULSE 90; RESP 18
[2021-08-15 20:35] LABS: International Normalized Ratio 1.2; Prothrombin Time (Protime)PT. 14.3 SECONDS (11.7-14.9)
[2021-08-15 20:36] LABS: Partial Thromboplast Time 37.1 Seconds (24.1-36.2)
[2021-08-15 20:39] LABS: Bacteria 0 SEEN /hpf (None Seen); Mucous, Urine 0 SEEN /hpf (<or=2+); Squamous Epithelial Cells - UA 0 SEEN /hpf (0-5); White Blood Cells 0 SEEN /hpf (0-5)
[2021-08-15 20:40] LABS: Color, Urine Yellow (Yellow); Glucose, Dipstick Normal (Normal); Ketone-Dipstick Negative (Negative); Leukocyte Esterase-Dipstick Negative /ul (Negative); Nitrite-Dipstick Negative (Negative); Occult Blood-Urine 150 /ul (Negative); Protein-Dipstick 100 mg/dl (Negative); Urine Bilirubin Dipstick Negative (Negative); Urine Clarity Clear (Clear); Urine Urobilinogen 8 mg/dl (Normal)
[2021-08-15 20:45] LABS: ALB/GLOB Ratio 0.9 RATIO (0.9-2.4); AST(SGOT) 24 U/L (15-37); Alanine Aminotransfer ALT/SGPT 30 U/L (16-61); Albumin, Serum 3.4 g/dL (3.2-5.0); Alkaline Phosphatase 44 U/L (45-117); Anion Gap 6 (5-15); BUN 18 mg/dL (7-18); BUN/Creat Ratio 11.3 RATIO (10-20); Calcium,Total 8.5 mg/dL (8.5-10.1); Chloride 108 mmol/L (98-107); Creatinine, Serum 1.59 mg/dL (0.70-1.30); EST Glomerular Filtration Rate 45 mL/min (>60); Est Glom Filt Rate - Afr Amer 55 mL/min (>60); Estimated Creatinine Clearance 44.74 ml/min; Globulin 3.7 g/dL (2.2-4.2); Glucose 98 mg/dL (74-106); Lipase 78 U/L (73-393); Potassium 3.8 mmol/L (3.5-5.1); Protein, Total 7.1 g/dL (6.4-8.2); Sodium Level 141 mmol/L (136-145)
[2021-08-15 20:47] LABS: Lactic Acid 1.2 mmol/L (0.4-1.9)
[2021-08-15 20:50] LABS: Red Blood Cells-Urine 0-5 SEEN /hpf (0-5)
[2021-08-15 21:26] VITALS: PULSE 83; RESP 24; O2SAT 94
[2021-08-15 21:41] VITALS: BP 134/66; PULSE 80; RESP 16; TEMP 38.7; O2SAT 96
[2021-08-15] MEDS: Ibuprofen 600 MG Tablet PO (22:07)
[2021-08-15 22:53] VITALS: BP 128/95; PULSE 76; RESP 24; O2SAT 94
== END 2021-08-15 22:53 | disposition home or self-care (01) ==
PROVIDERS: Emergency Provider Emergency Medicine
DX: B34.9 Viral infection, unspecified (principal); I10 Essential (primary) hypertension; I25.10 Atherosclerotic heart disease of native coronary artery without angina pectoris; Z87.891 Personal history of nicotine dependence; Z79.01 Long term (current) use of anticoagulants; Z79.899 Other long term (current) drug therapy
CPT/HCPCS: 71045; 80053; 81001; 83605; 83690; 85025; 85610; 85730; 87040; 87086; 87426; 87880; 93005; 99284; A4216

== ENCOUNTER 2023-01-09 11:22 | Emergency (ER) | payer OTHER, SELFPAY ==
[2023-01-09] VITALS (7 sets, daily range): BP systolic 140–163; BP diastolic 66–89; PULSE 65–88; RESP 16–21; TEMP 36.3; O2SAT 94–99; BMI 32.2
--- NOTE | 2023-01-09 11:40 | RAD_ITS ---
STUDY: X-RAY CHEST REASON FOR EXAM: Male, 77 years old. Shortness of breath TECHNIQUE: PA and lateral views of the chest. COMPARISON: Comparison is made with prior study dated August 15, 2021. FINDINGS: EKG electrodes are seen. Stable mild elevation right hemidiaphragm. There is no demonstrated pleural abnormality. Sternal cerclage wires and vascular clips are present from a prior sternotomy and coronary artery bypass graft procedure (CABG). Normal mediastinum and shon. Normal visualized pulmonary arteries. There is atherosclerotic calcification of the aortic arch with tortuosity. There is demineralization of the osseous structures. Normal visualized ribs, clavicles, and shoulders. There is no demonstrated abnormality of the visualized soft tissue structures of the upper abdomen. RAD/Chest PA and Lateral IMPRESSION: No acute abnormality is seen. Electronically Signed: Uvaldo Madden MD at 12:33 EST ,
[2023-01-09] MEDS: Albuterol 2.5 MG/3 ML VIAL.NEB. INHALATION (11:52)
[2023-01-09] MEDS: Ipratropium/Albuterol Sulfate 3 ML AMPUL.NEB INHALATION (11:52)
--- NOTE | 2023-01-09 11:53 | EX.ED.DYSGE1 ---
HPI <CAITLYN Oscar - Last Filed: 01/09/23 14:26> History of Present Illness Chief Complaint: General Illness Narrative Narrative: Patient is a 77-year-old male with history of hypertension, CAD, CABG 5 years ago, atrial fibrillation on Eliquis, type 2 diabetes, COPD presents to the emergency department with multiple weeks of increasing shortness of breath. Patient has noticed that the shortness of breath has been much worse during exertion. He does have history of prostate cancer and received radiation. Patient states that since he has been done with radiation, he has gained weight. He also complains of lower leg edema. Patient also complains of some right-sided chest pain that is intermittent, he also states to have left-sided chest pains been ongoing since his CABG. He does go to the [facility], they referred him to the emergency department for the shortness of breath. He denies missing any of his Eliquis doses. [facility] <CAITLYN Oscar - Last Filed: 01/09/23 14:26> [facility] Medical History (Updated 01/09/23 @ 14:26 by CAITLYN Oscar) Acute peptic ulcer Acute sciatica Amaurosis fugax Atrial paroxysmal tachycardia CAD (coronary artery disease) Chronic neck and back pain Chronic primary gouty arthritis Chronic primary gouty arthritis Claudication Hyperlipidemia Hypertension Knee pain Macroscopic hematuria Malaise and fatigue Prostate cancer PVD (peripheral vascular disease) with claudication Shortness of breath Thrombocytopenic disorder Home Medications amiodarone 100 mg tablet (Pacerone) 100 mg PO DAILY 10/22/18 [History Last Taken Unknown] apixaban 5 mg tablet (Eliquis) 5 mg PO BID 10/22/18 [History Last Taken Unknown] clopidogrel 75 mg tablet 75 mg PO DAILY 10/22/18 [History Last Taken Unknown] furosemide 20 mg tablet 20 mg PO DAILY 10/22/18 [History Last Taken Unknown] metoprolol tartrate 25 mg tablet 12.5 mg PO BID 10/22/18 [History Last Taken Unknown] potassium chloride 20 mEq tablet,extended release(part/cryst) 20 meq PO BID 10/22/18 [History Last Taken Unknown] gabapentin 300 mg capsule (Neurontin) 300 mg PO DAILY #10 caps 09/26/20 [Rx Last Taken Unknown] coenzyme Q10 100 mg capsule (CoQ-10) 200 mg PO DAILY 08/15/21 [History Last Taken Unknown] Allergy/AdvReac Type Severity Reaction Status Date / Time acetaminophen AdvReac Swelling Verified 01/09/23 11:25 [From Tylenol-Codeine] codeine phosphate AdvReac Swelling Verified 01/09/23 11:25 [From Tylenol-Codeine] Surgical History (Updated 08/15/21 @ 20:11 by Peggy Clay) History of coronary artery stent placement Hx of CABG Social History Smoking Status: Former smoker alcohol intake: never ROS <CAITLYN Oscar - Last Filed: 01/09/23 14:26> ROS ED ROS Narrative Constitutional: Negative for fever, chills, weight loss, weakness Eyes: Negative for vision loss, vision change, double vision ENT: Negative for any sore throat, ear pain, congestion Cardiovascular: Negative for any tightness, palpitations. Positive chest pain Respiratory: Negative for any cough, sputum production, hemoptysis. Positive for dyspnea, dyspnea on exertion, orthopnea Gastrointestinal: Negative for any abdominal pain, nausea, vomiting, diarrhea, constipation, blood in stool, blood in vomit : Negative for any urinary frequency, dysuria, retention, blood in urine Muscle skeletal: Negative for any muscle joint pain, stiffness, myalgias, arthralgias, neck pain, back pain Neurological: Negative for any headache, syncope, numbness or tingling, dizziness Skin: Negative for any rashes, lumps, itching, abrasions, lacerations Psychiatric: Negative for any depression, anxiety, stress, suicidal ideation, homicidal ideation Hematologic: Negative for any easy bruising, excessive bruising, easy bleeding Allergies: Negative for any eczema, hives, rash EXAM <CAITLYN Oscar - Last Filed: 01/09/23 14:26> Physical Exam Narrative Exam Narrative: Vital signs reviewed. HEET: Head normocephalic atraumatic, TMs clear bilaterally. Posterior pharynx is clear, moist mucous membranes. Nares clear bilaterally. Neck: Supple with no lymphadenopathy or tenderness. No signs of meningismus, negative jolt sign. Cardiac: Regular rate and rhythm no murmurs gallops or rubs, equal peripheral pulses bilaterally. Respiratory: Patient has some wheezes on expiration to the right middle lobe, remainder was clear. No chest tenderness. Abdomen: Soft, nontender, nondistended. No abdominal bruit or pulsatile masses. No hepatosplenomegaly Extremities: No peripheral edema, no signs of gross trauma or deformity. Active full range of motion of all extremities. I do not appreciate any bilateral lower leg pitting edema. Neuro: Cranial nerves II through XII intact, no focal neurological deficits. Skin: Clean dry and intact with no rash, purpura, petechiae, vesicles or pustules. Backs/flank: No CVA tenderness, no midline spinal tenderness, no deformity. Psych: Normal mood and affect. No SI, HI or acute psychosis. Const Vital Signs: 01/09/23 11:23 01/09/23 11:42 01/09/23 11:42 Temperature 97.4 F L Temperature Source Temporal Pulse Rate 77 69 Respiratory Rate 16 20 H Respiratory Effort Non-Labored Short of Breath Respiratory Pattern Tachypnea Blood Pressure 160/79 H 163/82 H Blood Pressure Mean 106 109 Pulse Ox 99 98 Oxygen Delivery Method Room Air Room Air 01/09/23 11:54 01/09/23 12:59 01/09/23 13:50 Temperature Temperature Source Pulse Rate 76 88 65 Respiratory Rate 21 H 18 18 Respiratory Effort Respiratory Pattern Normal Blood Pressure 150/89 H 140/66 H Blood Pressure Mean 109 90 Pulse Ox 94 94 Oxygen Delivery Method Room Air Room Air 01/09/23 14:40 Temperature Temperature Source Pulse Rate Respiratory Rate 18 Respiratory Effort Respiratory Pattern Blood Pressure Blood Pressure Mean Pulse Ox Oxygen Delivery Method Positive well nourished and well developed General Appearance ED: well developed <Dr. Nina Giullen, DO - Last Filed: 01/09/23 17:54> Physical Exam Const Vital Signs: 01/09/23 11:23 01/09/23 11:42 01/09/23 11:42 Temperature 97.4 F L Temperature Source Temporal Pulse Rate 77 69 Respiratory Rate 16 20 H Respiratory Effort Non-Labored Short of Breath Respiratory Pattern Tachypnea Blood Pressure 160/79 H 163/82 H Blood Pressure Mean 106 109 Pulse Ox 99 98 Oxygen Delivery Method Room Air Room Air 01/09/23 11:54 01/09/23 12:59 01/09/23 13:50 Temperature Temperature Source Pulse Rate 76 88 65 Respiratory Rate 21 H 18 18 Respiratory Effort Respiratory Pattern Normal Blood Pressure 150/89 H 140/66 H Blood Pressure Mean 109 90 Pulse Ox 94 94 Oxygen Delivery Method Room Air Room Air 01/09/23 14:40 Temperature Temperature Source Pulse Rate Respiratory Rate 18 Respiratory Effort Respiratory Pattern Blood Pressure Blood Pressure Mean Pulse Ox Oxygen Delivery Method MDM <Mykel DoughertyCAITLYN frank - Last Filed: 01/09/23 14:26> [facility] Lab Data Attestation: I reviewed the patient's lab results. Labs: Laboratory Results - last 24 hr 01/09/23 01/09/23 01/09/23 11:53 11:53 11:53 WBC 3.4 L RBC 3.82 L Hgb 12.7 L Hct 38.0 L MCV 99.5 H MCH 33.2 H MCHC 33.4 RDW Std Deviation 45.1 H RDW Coeff of Phil 12.5 Plt Count 150 MPV 10.6 Immature Gran % (Auto) 0.600 Neut % (Auto) 66.7 Lymph % (Auto) 15.3 L [place] % (Auto) 11.2 H Eos % (Auto) 5.0 Baso % (Auto) 1.2 H Absolute Neuts (auto) 2.3 Absolute Lymphs (auto) 0.52 L Nucleated RBC % 0 Differential Comment COMMENT Diff Path Review May foll PT INR Sodium 142 Potassium 3.8 Chloride 108 H Carbon Dioxide 28.0 Anion Gap 6 BUN 18 Creatinine 1.18 Estim Creat Clear Calc 58.46 Est GFR (MDRD) Af Amer 77 Est GFR (MDRD) Non-Af 64 BUN/Creatinine Ratio 15.3 Glucose 160 H Calcium 8.8 Troponin I High Sens 6 B-Natriuretic Peptide 127.6 H 01/09/23 01/09/23 12:28 14:20 WBC RBC Hgb Hct MCV MCH MCHC RDW Std Deviation RDW Coeff of Phil Plt Count MPV Immature Gran % (Auto) Neut % (Auto) Lymph % (Auto) [place] % (Auto) Eos % (Auto) Baso % (Auto) Absolute Neuts (auto) Absolute Lymphs (auto) Nucleated RBC % Differential Comment Diff Path Review PT 15.9 H INR 1.3 Sodium Potassium Chloride Carbon Dioxide Anion Gap BUN Creatinine Estim Creat Clear Calc Est GFR (MDRD) Af Amer Est GFR (MDRD) Non-Af BUN/Creatinine Ratio Glucose Calcium Troponin I High Sens 7 B-Natriuretic Peptide Radiography Diagnostic Testing: Clinical Impression(s) from Imaging Studies Chest X-Ray 01/09/23 11:40 IMPRESSION: No acute abnormality is seen. Electronically Signed: Uvaldo Madden MD at 12:33 EST , Venous Doppler Study 01/09/23 12:48 Interpretation Summary No evidence for acute deep venous thrombosis bilateral lower extremities with patent and compressible bilateral great saphenous veins. Ordering Physician: Mykel Wolfe Referring Physician: [facility] Performed By: [place] [facility] EKG shows a sinus rhythm with sinus arrhythmia: Interpretation: Sinus Rhythm Comments: Rate of 73 bpm, VA 128 ms, QRS duration 90 ms, no acute ST elevation, no acute infarct noted. Reviewed by ER attending Differential Diagnosis Chest pain/SOB: ACS, pneumonia and COPD Why less likely: Negative for any infectious process Additional Tests and Interventions Additional Tests or Interventions: Ultrasound bilateral lower extremity secondary to lower leg pain, slight variation pedal pulses Treatment and Re-Evaluation :: Patient appears generally well, patient appears nontoxic, vital signs are stable. Patient presents to the emergency department with complaints of multiple weeks of increased shortness of breath worse on exertion, bilateral leg pain. Patient did receive a full cardiac work-up, patient's chest x-ray entered by ER physician shows no acute abnormality seen. EKG was unremarkable, there is no significant evidence for any ACS, UT. Patient's laboratory studies show a normal troponin, patient's proBNP was 127.6, this is only slightly elevated, patient's CBC showed slight anemia at 12.7, patient recently was being treated for prostate cancer. He has no signs or symptoms of infectious process. There is no evidence to suspect any UT, no evidence of active pneumonia. Patient did receive a bilateral lower leg venous duplex, this was negative for any DVT. There is no evidence of suspect any PE or DVT. I do believe the patient does have vascular disease this can also be causing his leg pain. He will be following up with vascular surgery. Patient was ambulated around the department on room air he never drop below 94%, he ambulated well. Patient at this time feels stable for discharge, he will follow-up closely. <Dr. Nina Guillen, DO - Last Filed: 01/09/23 17:54> [facility] Narrative Medical decision making narrative: I have personally performed a face to face assessment of the patient and have reviewed the OPAL Note. I performed a substantive portion of the visit including all aspects of the following. My sexton findings include: History is patient is a 77-year-old male with significant history of coronary artery disease and COPD presenting with worsening dyspnea on exertion for months but is been worse the past few weeks. He denies any chest pain. Denies any fever. No change in his sputum production. Patient is 99% on room air and his vital signs are stable can only for mild hypertension. Clinically does not appear fluid overloaded. He is ambulated with no desaturations. Patient is anticoagulant Eliquis have a low suspicion for pulmonary emboli. CBC is remarkable for mild leukopenia and mild anemia however I do not think these are significant of to be causing the symptoms. BNP is only minimally elevated at 127 is high sensitive troponin is 6. On repeat it is 7. EKG does not show acute ischemic changes. Chest x-ray to read by myself as well as radiology does not show any acute cardiopulmonary process. Patient not have any significant electrolyte derangement. Patient counseled the exact cause of his symptoms are not clear at this time however we do recommend further outpatient follow-up. At this time I do not think he requires admission to the hospital. Patient is comfortable with this plan of care. Is given return precautions. Is given referral to vascular surgery for outpatient follow-up as he reports a lot of foot pain and does have slightly unequal pulses in his lower extremities. Again I do not think this is the cause of his dyspnea on exertion however and his symptoms are not consistent with acute claudication at this time. Lab Data Labs: Laboratory Results - last 24 hr 01/09/23 01/09/23 01/09/23 11:53 11:53 11:53 WBC 3.4 L RBC 3.82 L Hgb 12.7 L Hct 38.0 L MCV 99.5 H MCH 33.2 H MCHC 33.4 RDW Std Deviation 45.1 H RDW Coeff of Phil 12.5 Plt Count 150 MPV 10.6 Immature Gran % (Auto) 0.600 Neut % (Auto) 66.7 Lymph % (Auto) 15.3 L [place] % (Auto) 11.2 H Eos % (Auto) 5.0 Baso % (Auto) 1.2 H Absolute Neuts (auto) 2.3 Absolute Lymphs (auto) 0.52 L Nucleated RBC % 0 Differential Comment COMMENT Diff Path Review May foll PT INR Sodium 142 Potassium 3.8 Chloride 108 H Carbon Dioxide 28.0 Anion Gap 6 BUN 18 Creatinine 1.18 Estim Creat Clear Calc 58.46 Est GFR (MDRD) Af Amer 77 Est GFR (MDRD) Non-Af 64 BUN/Creatinine Ratio 15.3 Glucose 160 H Calcium 8.8 Troponin I High Sens 6 B-Natriuretic Peptide 127.6 H 01/09/23 01/09/23 12:28 14:20 WBC RBC Hgb Hct MCV MCH MCHC RDW Std Deviation RDW Coeff of Phil Plt Count MPV Immature Gran % (Auto) Neut % (Auto) Lymph % (Auto) [place] % (Auto) Eos % (Auto) Baso % (Auto) Absolute Neuts (auto) Absolute Lymphs (auto) Nucleated RBC % Differential Comment Diff Path Review PT 15.9 H INR 1.3 Sodium Potassium Chloride Carbon Dioxide Anion Gap BUN Creatinine Estim Creat Clear Calc Est GFR (MDRD) Af Amer Est GFR (MDRD) Non-Af BUN/Creatinine Ratio Glucose Calcium Troponin I High Sens 7 B-Natriuretic Peptide Radiography Diagnostic Testing: Clinical Impression(s) from Imaging Studies Chest X-Ray 01/09/23 11:40 IMPRESSION: No acute abnormality is seen. Electronically Signed: Uvaldo Madden MD at 12:33 EST , Venous Doppler Study 01/09/23 12:48 Interpretation Summary No evidence for acute deep venous thrombosis bilateral lower extremities with patent and compressible bilateral great saphenous veins. Ordering Physician: Mykel Wolfe Referring Physician: [facility] Performed By: [place] [facility] Discharge Plan Triage Chief Complaint: General Illness ED Midlevel Provider: Mykel Wolfe ED Provider: Nina Guillen Dx/Rx/DC Orders Clinical Impression: SOB (shortness of breath) on exertion, COPD (chronic obstructive pulmonary disease), Arterial vascular disease Instructions: Chronic Lung Disease Aerobic, ED Heart Disease Risk Factors Prescriptions: No Action gabapentin [Neurontin] 300 mg capsule 300 mg PO DAILY Qty: 10 0RF clopidogrel 75 MG tablet 75 mg PO DAILY amiodarone [Pacerone] 100 MG tablet 100 mg PO DAILY metoprolol tartrate 25 MG tablet 12.5 mg PO BID potassium chloride 20 MEQ tablet 20 meq PO BID furosemide 20 MG tablet 20 mg PO DAILY Eliquis 5 MG tablet 5 mg PO BID coenzyme Q10 [CoQ-10] 100 mg Capsule 200 mg PO DAILY Primary Care Provider: [facility] Referrals: Joel Garcia MD [Med Staff - Active Staff] - [facility] [Primary Care Provider] - Activity Restrictions/Additional Instructions: Please follow-up outpatient. Return for any worsening symptoms. Disposition Disposition: Home, Self Care Discharge Date/Time: 01/09/23 14:40
[2023-01-09 12:02] LABS: Absolute Lymphocyte Count 0.52 X10^3/uL (0.83-4.51); Absolute Neutrophil Count 2.3 X10^3/uL (2.0-7.7); Basophil# 0.04 X10^3/uL; Basophil% 1.2 % (0-1); Eosinophil# 0.17 X10^3/uL; Hemoglobin 12.7 g/dL (13.0-16.5); Lymphocyte # 0.52 X10^3/ul (0.83-4.51); Lymphocyte % 15.3 % (19-41); Mean Corp Hgb Conc 33.4 g/dL (32-36); Mean Corpuscular Hgb 33.2 pg (27.0-32.0); Mean Corpuscular Volume 99.5 fL (80-94); Mean Platelet Vol. 10.6 fl (6.2-12.0); Monocyte# 0.38 X10^3/uL; Monocyte% 11.2 % (0-10); NRBC Flagged by Analyzer 0 % (0-5); Neutrophil # 2.27 X10^3/uL (2.7-7.7); Neutrophil % 66.7 % (47-70); POSITIVE DIFFERENTIAL YES; Platelet Count 150 K/mm3 (150-450); RBC Distribution Width CV 12.5 % (11.6-14.6); RBC Distribution Width SD 45.1 fl (35.1-43.9); Red Blood Count 3.82 M/mm3 (4.6-6.2); White Blood Count 3.4 K/mm3 (4.4-11.0)
[2023-01-09 12:04] LABS: Differential Indicated SCAN CRITERIA MET
[2023-01-09 12:18] LABS: Anion Gap 6 (5-15); BUN 18 mg/dL (7-18); BUN/Creat Ratio 15.3 RATIO (10-20); Calcium,Total 8.8 mg/dL (8.5-10.1); Chloride 108 mmol/L (98-107); Creatinine, Serum 1.18 mg/dL (0.70-1.30); EST Glomerular Filtration Rate 64 mL/min (>60); Est Glom Filt Rate - Afr Amer 77 mL/min (>60); Estimated Creatinine Clearance 58.46 ml/min; Glucose 160 mg/dL (74-106); Potassium 3.8 mmol/L (3.5-5.1); Sodium Level 142 mmol/L (136-145); Troponin-I HS (w/2H Reflex) 6 pg/mL (3.0-78.0)
[2023-01-09 12:40] LABS: BNP,B-Type NATRIURETIC PEPTIDE 127.6 pg/mL (0-100)
--- NOTE | 2023-01-09 12:48 | VDLE_ITS ---
Reason For Study: Pain RIGHT LEFT GSV is normal. GSV is normal. CFV is compressible, spontaneous, phasic, CFV is compressible, spontaneous, phasic, competent and demonstrates normal competent, and demonstrates normal augmentation. augmentation. FV is compressible, spontaneous, phasic, FV is compressible, spontaneous, phasic, competent and demonstrates normal competent and demonstrates normal augmentation. augmentation. POP V is compressible, spontaneous, phasic, POP V is compressible, spontaneous, phasic, competent and demonstrates normal competent and demonstrates normal augmentation. augmentation. T/P Trunk is compressible. T/P Trunk is compressible. PTV is compressible. PTV is compressible. RT PerV is compressible. LT PerV is compressible. Procedure This is a venous duplex using B-mode, color flow and spectral Doppler. Exam performed portable in ED. A preliminary report was called and/or faxed to [facility]. VL/Venous Duplex US - Michael Extrem Interpretation Summary No evidence for acute deep venous thrombosis bilateral lower extremities with p atent and compressible bilateral great saphenous veins. Ordering Physician: Mykel Wolfe Referring Physician: [facility] Performed By: [place] [facility]
[2023-01-09 13:39] LABS: International Normalized Ratio 1.3; Prothrombin Time (Protime)PT. 15.9 SECONDS (11.7-14.9)
[2023-01-09 13:58] LABS: Reflex Troponin-HS? (from REC) Y
[2023-01-09 14:52] LABS: Troponin-I HS 7 pg/mL (3.0-78.0)
[2023-01-13 08:59] LABS: Pathologist Review Reviewed
== END 2023-01-09 14:40 | disposition home or self-care (01) ==
PROVIDERS: Nurse Practitioner; Emergency Provider Emergency Medicine; Visit Provider Emergency Medicine
DX: J44.9 Chronic obstructive pulmonary disease, unspecified (principal); E11.51 Type 2 diabetes mellitus with diabetic peripheral angiopathy without gangrene; I48.91 Unspecified atrial fibrillation; C61 Malignant neoplasm of prostate; R06.02 Shortness of breath; I25.10 Atherosclerotic heart disease of native coronary artery without angina pectoris; I10 Essential (primary) hypertension; E78.5 Hyperlipidemia, unspecified; M1A.00X0 Idiopathic chronic gout, unspecified site, without tophus (tophi); Z79.899 Other long term (current) drug therapy; Z87.891 Personal history of nicotine dependence; Z79.01 Long term (current) use of anticoagulants; Z95.1 Presence of aortocoronary bypass graft
CPT/HCPCS: 71046; 80048; 83880; 84484; 85025; 85610; 93005; 93970; 94640; 99284; A4216